=== PATIENT | female | born 1950 | race Caucasian/White ===

== ENCOUNTER → 2016-12-23 | Outpatient (CLI) | payer OTHER | LOC: CIMAGING 09:47 | PROVIDERS: ATTEND Internal Medicine | DX: Z12.31 Encounter for screening mammogram for malignant neoplasm of breast (principal) | CPT/HCPCS: G0202 ==

== ENCOUNTER → 2017-06-14 | Outpatient (CLI) | payer OTHER | LOC: FIMAGING 14:10 | PROVIDERS: ATTEND Internal Medicine | DX: N64.4 Mastodynia (principal) ==

== ENCOUNTER → 2017-07-31 | Outpatient (CLI) | payer OTHER | LOC: FIMAGING 10:16 | PROVIDERS: ATTEND Internal Medicine | DX: Z13.820 Encounter for screening for osteoporosis (principal); M81.0 Age-related osteoporosis without current pathological fracture; Z78.0 Asymptomatic menopausal state; Z85.3 Personal history of malignant neoplasm of breast ==

== ENCOUNTER → 2017-08-16 | Outpatient (CLI) | payer OTHER | LOC: CIMAGING 10:57 | DX: M54.2 Cervicalgia (principal); M79.641 Pain in right hand | CPT/HCPCS: 72040-PO; 73140-PO ==

== ENCOUNTER 2018-02-22 09:09 | Inpatient (IN) | payer OTHER ==
[2018-02-22] MEDS ORDERED: ceFAZolin 2 GM/DEXTROSE 100 ML IV ONE (09:35)
[2018-02-22] MEDS ORDERED: GABAPENTIN 300 MG CAP PO ONE (09:35)
[2018-02-22] MEDS ORDERED: ACETAMINOPHEN 500 MG TAB PO ONE (09:35)
[2018-02-22] MEDS ORDERED: LIDOCAINE 1% 2 ML INJ ID PRN (09:37)
[2018-02-22] MEDS ORDERED: LR 1,000 ML IV ONE (09:37)
[2018-02-22] MEDS ORDERED: ONDANSETRON 4 MG/2 ML VIAL ONE (10:45)
[2018-02-22] MEDS ORDERED: PHENYLEPHRINE 10 MG/ML SDV ONE (10:45)
[2018-02-22] MEDS ORDERED: ROCURONIUM 50 MG/5 ML VIAL ONE (10:45)
[2018-02-22] MEDS ORDERED: DEXAMETHASONE 4 MG/ML VIAL ONE (10:45)
[2018-02-22] MEDS ORDERED: LIDOCAINE 2% 5 ML SDV ONE (10:45)
[2018-02-22] MEDS ORDERED: REMIFENTANIL HCL 1 MG VIAL ONE ×5 (10:46→15:32)
[2018-02-22] MEDS ORDERED: PROPOFOL/EMULSION 500 MG/50 ML BOTTLE IV ONE ×4 (10:46→14:24)
[2018-02-22] MEDS ORDERED: THROMBIN (BOVINE) 5,000 UNIT VIAL TP ONE (10:52)
[2018-02-22] MEDS ORDERED: CHLORHEXIDINE GLUC HIBICLENS 118 ML BTL TP ONE (10:52)
[2018-02-22] MEDS ORDERED: BUPIVACAINE/EPI 0.25% 30 ML SDV ONE (10:52)
[2018-02-22] MEDS ORDERED: BACITRACIN 50,000 UNITS/10 ML SYR IRR ONE (10:52)
[2018-02-22] MEDS ORDERED: PROPOFOL 200 MG/20 ML VIAL ONE (10:55)
--- NOTE | 2018-02-22 11:02 | PDHPUP ---
History & Physical Update H&P update statement: This history and physical update is based on an assessment of the patient which was completed after admission or registration (within 24 hours), but prior to the surgery/procedure. H&P update: H&P reviewed & patient examined, no change in patient's condition since H&P completed
--- NOTE | 2018-02-22 11:38 | PDANEPAE ---
ANE History of Present Illness Cervical neuropathies, here for farooq VILLARREAL JOE Past Medical History - Cardiovascular History Hx Hypertension: Yes Hx Arrhythmias: No Hx Chest Pain: No Hx Coronary Artery / Peripheral Vascular Disease: No Hx CHF / Valvular Disease: No Hx Palpitations: No Cardiovascular History Comment: HYPERL. AMLODIPINE FOR ANGINA ATTACKS - NONE RECENT - Pulmonary History Hx COPD: No Hx Asthma/Reactive Airway Disease: No Hx Recent Upper Respiratory Infection: No Hx Oxygen in Use at Home: No Hx Sleep Apnea: No Sleep Apnea Screening Result - Last Documented: Negative - Neurologic History Hx Cerebrovascular Accident: No Hx Seizures: No Hx Dementia: No Neurologic History Comment: HORMONAL H/As WHEN YOUNGER - Endocrine History Hx Diabetes: No - Renal History Hx Renal Disorders: No - Liver History Hx Hepatic Disorders: No Hepatic History Comment: PANCREATITIS X3 - FIRST EPISODE PRIOR TO HALIMA THEN X2 SINCE - Neurological & Psychiatric Hx Hx Neurological and Psychiatric Disorders: No Neurological / Psychiatric History Comment: ANXIETY/DEPRESSION - Cancer History Hx Cancer: Yes Cancer History Comment: BREAST CA - Congenital Disorder History Hx Congenital Disorders: No - GI History Hx Gastrointestinal Disorders: No Gastrointestinal History Comment: COLECTOMY - Other Health History Other Health History: NEG - Chronic Pain History Chronic Pain: Yes (NECK, BACK & LEG PAIN) - Surgical History Prior Surgeries: 2004 PARTIAL MASTECTOMY L. ASCENDING COLECTOMY X2. RETROPERITONEAL ABSCESS. CHOLECYSTECTOMY. BREAST REDUCTION 2005. KIDNEY CYST ANE Review of Systems Review of Systems: - Exercise capacity METS (RN): 4 METS ANE Patient History - Allergies Allergies/Adverse Reactions: hydromorphone [Hydromorphone] Allergy (Severe, Verified 02/22/18 09:44) Other-Enter Comments iodine [Iodine] Allergy (Severe, Verified 02/22/18 09:44) Anaphylaxis adhesive tape [Adhesive Tape] Allergy (Intermediate, Verified 02/22/18 10:16) Other-Enter Comments - Home Medications Home Medications: Aspirin [Aspirin 325 mg (*)] 325 mg PO DAILY 12/15/11 [Last Taken 02/15/18] Calcium Carb W/Vit D [Calcium Carb W/Vit D 500/200 (*)] 500 mg PO BID 12/15/11 [ Last Taken 02/15/18] Fexofenadine HCl [Kaya Allergy] 180 mg PO DAILY PRN 12/15/11 [Last Taken ] Fish Oil/Dha/Epa [Fish Oil 1,200 mg Fish Oil] 2 each PO BID 12/15/11 [Last Taken 02/15/18] Fluoxetine HCl [Prozac 40 mg] 40 mg PO DAILY 12/15/11 [Last Taken 02/22/18 08:00 ] Multivitamins [Multivitamin (*)] 1 each PO DAILY 12/15/11 [Last Taken 02/15/18] Niacin [Niacin 500 mg (*)] 1,500 mg PO HS 12/15/11 [Last Taken 02/15/18] Potassium 550 Mg 1 tab PO DAILY 12/15/11 [Last Taken 02/22/18 08:00] Simvastatin 20 mg PO DAILY 12/15/11 [Last Taken 02/21/18 21:00] Triamterene/Hctz 75/50 [Maxzide 75-50 mg Tab (*)] 1 each PO DAILY 12/15/11 [ Last Taken 02/21/18 09:00] Amlodipine Besylate 02/08/18 [Last Taken 02/22/18 08:00] - NPO status NPO Since - Liquids (Date): 02/21/18 NPO Since - Liquids (Time): 18:30 NPO Since - Solids (Date): 02/21/18 NPO Since - Solids (Time): 18:30 - Smoking Hx Smoking Status: Never smoked - Family Anes Hx Family Hx Anesthesia Complications: NEG ANE Labs/Vital Signs - Labs Result Diagrams: 02/22/18 09:55 - Vital Signs Blood Pressure: 135/92 Heart Rate: 75 Respiratory Rate: 16 O2 Sat (%): 93 Height: 157.48 cm Weight: 58.967 kg ANE Physical Exam - Airway Neck exam: decreased ROM Mallampati Score: Class 2 Mouth exam: normal dental/mouth exam - Pulmonary Pulmonary: no respiratory distress - Cardiovascular Cardiovascular: regular rate and rhythym - ASA Status ASA Status: III ANE Anesthesia Plan Anesthesia Plan: general endotracheal anesthesia (Glidescope, blood if needed, TIVA with SSEPs) Total IV Anesthesia: Yes
[2018-02-22] MEDS ORDERED: THROMBIN (BOVINE) 20,000 UNIT VIAL TP ONE (11:47)
[2018-02-22] MEDS ORDERED: MIDAZOLAM 2 MG/2 ML VIAL ONE (12:03)
[2018-02-22] MEDS ORDERED: diphenhydrAMINE 25 MG CAP PO PRN (12:29)
[2018-02-22] MEDS ORDERED: POLYETHYLENE GLYCOL 3350 17 GM PKT PO PRN (12:29)
[2018-02-22] MEDS ORDERED: BISACODYL 10 MG SUPP PR PRN (12:29)
[2018-02-22] MEDS ORDERED: LACTULOSE 20 GM/30 ML UDCUP PO PRN (12:29)
[2018-02-22] MEDS ORDERED: ONDANSETRON 4 MG/2 ML VIAL IVP PRN ×2 (12:29→16:20)
[2018-02-22] MEDS ORDERED: MAGNESIUM HYDROXIDE 30 ML UDCUP PO PRN (12:29)
[2018-02-22] MEDS ORDERED: ONDANSETRON DISINTEGRATING 4 MG TAB PO PRN (12:29)
[2018-02-22] MEDS ORDERED: NS 1,000 ML IV SCH (12:30)
[2018-02-22] MEDS ORDERED: ACETAMINOPHEN 500 MG TAB PO SCH (14:00)
[2018-02-22] MEDS ORDERED: fentaNYL 100 MCG/2 ML INJ ONE ×2 (15:43→17:07)
--- NOTE | 2018-02-22 15:54 | PDMN ---
Medical Necessity Medical necessity: [facility] S320 cervical fusion A-1 days INPT for 3 or more levels OP: C4/5,5/6,6/7 cervical fusion anterior -AUTH # [id number] DONE IN PT.
[2018-02-22] MEDS ORDERED: fentaNYL 100 MCG/2 ML INJ IVP PRN (16:20)
[2018-02-22] MEDS ORDERED: NALOXONE HCL 0.4 MG/ML INJ IVP PRN (16:20)
--- NOTE | 2018-02-22 16:21 | POSTOPPROG ---
Post Op Note Date of Operation: 02/22/18 Surgeon: Jeffery Mcdermott Full Stack Java Developer: Chanda Marie NP Anesthesia: GET(General Endotracheal) Pre-op Diagnosis: Cervical stenosis Procedure: ACDF C4-5, C5-6, C6-7 Inf/Abcess present in the surg proc area at time of surgery?: No Depth: Deep Incisional (Fascial) EBL: 50-100 Total fluids administered: see anesthesia Complications: none Date of Surgery: 02/22/18 Post Op Day: 0 Assessment/Plan: Assessment: 67 yr old F s/p ACDF C4-5, C5-6, C6-7 for left neck and arm pain Plan: -Admit med surg -Pain management -PT/OT/ST -Post op xrays in am -Hard collar on at all times -Please provide with meseret collar for shower Please call neurosurgery with any questions/concerns Subjective: waking up in pacu Objective: waking up in pacu No facial droop WOODALL x4 5/5 BUE BLE Hard collar in place Dressing CDI Appropriate Neuro Check Frequency Ordered: Yes
--- NOTE | 2018-02-22 17:10 | POSTANESTH ---
Post Anesthetic Evaluation Cardiovascular Status: Similar to Pre-Op Cond Respiratory Status: Normal, Stable Level of Consciousness/Mental Status: Can Participate in Eval Pain Control: Adequate, Prn Tx Ordered Nausea/Vomiting Control: Adequate, Prn Tx Ordered Complications Possibly Related to Anesthesia: None Noted
[2018-02-22] MEDS: oxyCODONE IR 5 MG TAB PO PRN ×2 (18:17→22:20)
[2018-02-22] MEDS: ACETAMINOPHEN 500 MG TAB PO SCH (20:29)
[2018-02-22] MEDS: METHOCARBAMOL 750 MG TAB PO PRN (20:30)
[2018-02-22] MEDS: ceFAZolin 2 GM/DEXTROSE 100 ML IV SCH (22:19)
[2018-02-22] MEDS: SENNOSIDES/DOCUSATE SODIUM TAB PO SCH (22:20)
[2018-02-22] MEDS: FAMOTIDINE 20 MG TAB PO SCH (22:20)
--- NOTE | 2018-02-23 00:04 | GOP ---
DATE OF OPERATION: 02/22/2018 SURGEON: Scotty Mcdermott MD PROCUREMENT ANALYST: Sheree Marie NP. PREOPERATIVE DIAGNOSIS: Cervical spondylosis with left cervical radiculopathy. POSTOPERATIVE DIAGNOSIS: Cervical spondylosis with left cervical radiculopathy. PROCEDURE PERFORMED: Anterior cervical diskectomy with arthrodesis and decompression at each level C 4-5, C5-6, C6-7 (52853, 18107 x2); placement of structural biomechanical bone allograft at C4-5, C5-6 , C6-7; same incision bone graft harvest, microscope, anterior cervical instrumentation C4, C5, C6, C 7 ([id number]). FINDINGS: ESTIMATED BLOOD LOSS: 100 cc. INDICATIONS: The patient is a 67-year-old with terrible pain radiating down the left arm that was un responsive to conservative management. She decided to have surgery. Preoperatively, she had hypokal emia and the case was nearly canceled but we rechecked the potassium on the day of surgery and it had gone up to a 3.5 level, and we proceeded. She understood the risks of the surgery including the ris k of esophageal injury, carotid injury, recurrent laryngeal nerve injury, continued symptoms, pseudoa rthrosis, and the possible need for future spine surgery. She knew there was risk of hardware compli cations including malfunction of the hardware, malposition of the hardware, fracture of the hardware. She also knew that she may continue to have postoperative symptoms and sometimes surgery fails to a lleviate the pain. She knew there was risk of dysphagia, hoarseness, nerve injury, and major vascula r injury. She wanted to proceed despite these risks. DESCRIPTION OF PROCEDURE: The patient was taken to the operating room, placed in a supine position. General anesthesia was begun. A midline shoulder roll was placed. Her arms were tucked at her side . Her neck was sterilely prepped and draped in the usual fashion. We made a transverse incision on the right side of the neck. The subcutaneous tissue was dissected using Bovie cautery down through p latysma. We used a combination of sharp and blunt dissection to work our way medial to the sternocle idomastoid and lateral to the strap muscles down the prevertebral space. A localizing x-ray was take n. We dissected the longus colli muscles off the spine at C4, C5, C6 and C7. Self-retaining retract or was placed. We removed the ventral osteophytes at each of those levels. We placed distraction pi ns at C4-5, distracted there and removed the disk and the cartilaginous endplates. We drilled and lyons rvested subchondral bone for autologous grafting purposes and then we chose a 6 x 14 x 11 mm Cornerst one intervertebral device made out of allograft bone. We used a drill to widen the aperture in the m iddle of the bone. We did this at each level and packed it with bone autograft. We opened the poste rior longitudinal ligament and decompressed the thecal sac and as we were decompressing, there was so me adherence of the PLL strangely to the dura on the patient's right-hand side at the C4-5 level. As we were removing this, we removed a small portion of dura. The arachnoid was intact. There was no leakage of any CSF whatsoever. I placed a small piece of Gelfoam there and then placed our intervert ebral device with bone autograft in it at the C4-5 level. Moved our distraction pins and did likewis e at C5-6, C6-7. We did not encounter any difficulty at the other levels, opening the PLL was straig htforward and there was a clear plane between the PLL and the dura at all the other levels. We got g reat decompressions at C5-6 and C6-7. We drilled and harvested subchondral bone at each level and pa cked it inside the same size bone allograft. A nice fit was obtained. We did that at C5-6 and did l ikewise at C6-7. There was left-sided foraminal stenosis at each level. It was worse on the left at each level than on the right, but we did do bilateral decompressions. We removed all of our distrac tion pins after completing the diskectomy, decompression, and arthrodesis at each level, and then we chose a 53 mm plate. We increased the lordosis on the plate, placed a single screw at C4, a single s crew at C7. We shot an x-ray. We were happy with the position of the plate and screws. We then put the remaining screws in place and locked them according to company specification. The final x-ray w as taken and everything was in great position. We achieved meticulous hemostasis and then placed a l ittle 0.25% Marcaine with epinephrine in the wound. We then closed the incision in multiple layers u sing Vicryl sutures and Steri-Strips were applied to the skin. The patient was reversed from anesthe eva, extubated, and transferred to recovery room in stable condition. There were no complications. COMPLICATIONS: Unintended durotomy at C4-5 without spinal fluid leak. INSTRUMENTATION USED: Medtronic Zevo plate, 53 mm plate. We used 6 x 14 x 11 mm Cornerstone interve rtebral devices at each level. /[id number]/MODL
[2018-02-23] MEDS: oxyCODONE IR 5 MG TAB PO PRN ×5 (03:03→20:32)
[2018-02-23 05:26] LABS: PLATELET COUNT 246 10^3/uL (150-400)
[2018-02-23] MEDS: ACETAMINOPHEN 500 MG TAB PO SCH ×3 (06:11→20:33)
[2018-02-23] MEDS: ceFAZolin 2 GM/DEXTROSE 100 ML IV SCH (06:11)
[2018-02-23] MEDS: METHOCARBAMOL 750 MG TAB PO PRN ×2 (06:14→14:57)
[2018-02-23] MEDS: SENNOSIDES/DOCUSATE SODIUM TAB PO SCH ×2 (07:48→20:32)
[2018-02-23] MEDS: FLUoxetine 20 MG CAP PO SCH (07:48)
[2018-02-23] MEDS: ATORVASTATIN CALCIUM 10 MG TAB PO SCH (07:48)
[2018-02-23] MEDS: FAMOTIDINE 20 MG TAB PO SCH ×2 (07:54→20:31)
--- NOTE | 2018-02-23 09:30 | NEUSURGPN ---
Assessment/Plan: Assessment: 67 yr old F s/p ACDF C4-5, C5-6, C6-7 for left neck and arm pain POD1 Plan: -Advance diet as tolerated. -Pain management -PT/OT/ST -Post op xrays pending -Hard collar on at all times -Please provide with meseret collar for shower Please call neurosurgery with any questions/concerns Subjective: Mild dysphagia, denies any new arm pain Objective: NAD A&Ox3 MAEx4 5/5 and equal in BUE and BLE. Incision c/d/i. - Physician Patient Seen by : [facility] Physical Exam - Vitals, I&O, Labs I and O 02/22/18 02/23/18 02/24/18 05:59 05:59 05:59 Intake Total 2550 Output Total 1870 Balance 680 Weight 58.967 kg Intake: Oral (ml) 950 IV Intake (ml) 1600 Output: Urine (ml) 1850 Catheter 1850 Estimated Blood Loss (ml) 20 Other: Intake Quantity Yes Sufficient Vital Signs Temp Pulse Resp BP Pulse Ox 36.8 C 72 16 114/63 93 02/23/18 07:58 02/23/18 07:58 02/23/18 07:58 02/23/18 07:58 02/23/18 07:58 Laboratory Results 02/23/18 04:40 02/23/18 04:40 ICD10 Worksheet Patient Problems: Problems Problem Status Onset Cervical stenosis of spinal canal Acute - ICD10 Problem Qualifiers (1) Cervical stenosis of spinal canal
[2018-02-23] MEDS: amLODIPine BESYLATE 5 MG TAB PO SCH (11:21)
[2018-02-23] MEDS: TRIAMTERENE/HCTZ 75/50 1 EACH TAB PO SCH (12:39)
[2018-02-23] MEDS: POTASSIUM 550 MG PO SCH (12:39)
--- NOTE | 2018-02-23 14:23 | ASMTCMCOM ---
CM Note CM Note Notes: Pt had planned spinal surgery. Pt resides with spouse who works in [place] and is often not home but will be home until approx 03/19/17. 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 Spoke with pt and spouse about HHC PT, pt undecided and wants to think about if she wants HC. No referrals sent yet. CM to follow. D/c plan of care: independent or HHC PT depending on what pt decides. Date Signed: 02/23/2018 02:22 PM Electronically Signed By:WOOD Camacho
[2018-02-24] MEDS: ACETAMINOPHEN 500 MG TAB PO SCH (05:17)
[2018-02-24] MEDS: FAMOTIDINE 20 MG TAB PO SCH (08:51)
[2018-02-24] MEDS: METHOCARBAMOL 750 MG TAB PO PRN (08:51)
[2018-02-24] MEDS: SENNOSIDES/DOCUSATE SODIUM TAB PO SCH (08:51)
[2018-02-24] MEDS: FLUoxetine 20 MG CAP PO SCH (08:52)
[2018-02-24] MEDS: TRIAMTERENE/HCTZ 75/50 1 EACH TAB PO SCH (08:52)
[2018-02-24] MEDS: amLODIPine BESYLATE 5 MG TAB PO SCH (08:54)
[2018-02-24] MEDS: oxyCODONE IR 5 MG TAB PO PRN (08:54)
[2018-02-24] MEDS: ATORVASTATIN CALCIUM 10 MG TAB PO SCH (08:55)
[2018-02-24 08:57] VITALS: BP 127/74
--- NOTE | 2018-02-24 09:21 | NEUSURGPN ---
Assessment/Plan: 67 yr old F s/p ACDF C4-5, C5-6, C6-7 for left neck and arm pain POD2 Plan: -Pain management -PT/OT/ST if needed -Post op xrays look great -Hard collar on at all times -Please provide with meseret collar for shower -home later today Please call neurosurgery with any questions/concerns Subjective: doing well, arms feel great Objective: NAD in ccollar EOMI, PEARLA cnii-xii intact MAEx4, 5/5= SILT incision dressed, dry and clean - Physician Discussed Patient with : [facility] Physical Exam - Vitals, I&O, Labs I and O 02/23/18 02/24/18 02/25/18 05:59 05:59 05:59 Intake Total 2550 750 325 Output Total 1870 2300 Balance 680 -1550 325 Weight 58.967 kg Intake: Oral (ml) 950 750 325 IV Intake (ml) 1600 Output: Urine (ml) 1850 2300 Catheter 1850 Toilet 2300 Estimated Blood Loss (ml) 20 Other: Intake Quantity Yes Yes Yes Sufficient Number of Voids Toilet 2 Vital Signs Temp Pulse Resp BP Pulse Ox 36.8 C 72 14 127/74 H 97 02/24/18 07:31 02/24/18 07:31 02/24/18 07:31 02/24/18 08:54 02/24/18 07:31 Laboratory Results 02/23/18 04:40 02/23/18 04:40 ICD10 Worksheet Patient Problems: Problems Problem Status Onset Cervical stenosis of spinal canal Acute
--- NOTE | 2018-02-24 10:16 | ASDISCHSUM ---
Discharge Information Plan Status:Home with No Needs Medically Cleared to Leave:02/23/2018 Discharge Date:02/23/2018 CM D/C Disposition:Home, Routine, Self-Care ADT D/C Disposition:Home, Routine, Self-Care Projected Discharge Date:02/23/2018 Transportation at D/C:Family Discharge Delay Reason: Follow-Up Date:02/23/2018 Discharge Slot: Final Diagnosis:cervical stenosis, radiculopathy Placement Information Patient Contact Information Contact Name:IGOR Relationship: Address:[address] [place] Phone: [facility]/Zip Code:[place] [address] Email: Financial Information Financial Class:HMO and PPO Plans Primary Plan Desc:NISSA BOUDREAUX PPO POS Primary Plan Number:[id number] Secondary Plan Desc:MEDICARE OUTPATIENT Secondary Plan Number:[id number] Assessment Information LACE LACE Length of stay for Answers: Less than 1 day current admission Acuity / Level of Answers: Yes Care: Did the patient have an inpatient admission? Comorbidities - select Answers: Other Notes: cervical all that apply stenosis, radiculopathy # of Emergency department Answers: 0 visits in the last 6 months Score: 4 Date Signed: 02/24/2018 10:15 AM Electronically Signed By:Tiffanie Mathews [facility] CM Progress Note CM Note CM Note Notes: Pt had planned spinal surgery. Pt resides with spouse who works in [place] and is often not home but will be home until approx 03/19/17. OT/MEDICAL TECHNOLOGIST CLINICAL rec home, PT rec HHC. Spoke with pt and spouse about HHC PT, pt undecided and wants to think about if she wants HC. No referrals sent yet. CM to follow. D/c plan of care: independent or HHC PT depending on what pt decides. Date Signed: 02/23/2018 02:22 PM Electronically Signed By:WOOD Camacho Case Management Discharge Plan Note Case Management Discharge Discharge Order Complete? Answers: Yes Patient to Obtain Answers: via Family Medications Transportation Arranged Answers: Family/Friends Transport will Pick (Date 02/24/2018 12:00 AM & Time) Family Notified Answers: Yes Notes: by pt Discharge Comments Notes: Spoke with pt in the room. Pt feels she is comfortable going home independently and is declining home health care at this time. Pt lives with and daughter will also be in the house. No CM needs noted at this time. Date Signed: 02/24/2018 10:14 AM Electronically Signed By:Tiffanie Mathews Intervention Information
[2018-02-24] MEDS: POTASSIUM 550 MG PO SCH (10:21)
[2018-02-25] MEDS ORDERED: ENOXAPARIN 40 MG/0.4 ML SYR SC SCH (09:00)
--- NOTE | 2018-02-26 16:43 | GDS ---
PRIMARY DIAGNOSIS: Cervical stenosis. OPERATIONS/PROCEDURES: February 22, 2018, patient underwent anterior cervical diskectomy and fusion at C4-5, C5-6 and C6-[address] Mcdermott. HOSPITAL COURSE: The patient presented to [facility] on February 22, 2018, for an anterior cervical diskectomy and fusion of C4-5, C5-6 , and C6-7. Procedure was performed by Dr. Mcdermott for which there were no known complications, please see Dr. Mcdermott's operative note for further details. After the operation, the patient was in stable condition, and she was transferred from the OR to the PACU, and then to the surgical floor. While on the floor, the patient received physical therapy, occupational therapy and speech therapy, as well as [ain management. The catheter was removed. The patient was in stable condition and subsequently discharged home on January. The patient will follow up in office with Dr. Mcdermott in 2 weeks. She has been instructed to contact our office with any questions or concerns at . CONSULTS: None. COMPLICATIONS: None. DISCHARGE CONDITION: Stable. DISCHARGE MEDICATIONS: See discharge medication reconciliation for details. DISCHARGE INSTRUCTIONS: The patient to avoid any bending or twisting at the neck. Patient to avoid lifting greater than 10 pounds. Patient has been instructed to wear her cervical collar at all times. Okay for the patient to remove the outer dressing on postoperative day 3, leaving the Steri-Strips in place. It is okay for the patient to shower on postoperative day 3. She will avoid submersion of the incision for the next 2 to 3 weeks. Patient to avoid any NSAID for the next 4 to 6 months. She will follow up in our office is scheduled in 2 weeks for postoperative visit, and she has been instructed to call sooner with any questions or concerns. /[id number]/MODL MTDD
== END 2018-02-24 12:11 | disposition home or self-care (01) | DRG 472 ==
LOC: F3E 09:09 → F3N 17:39
PROVIDERS: ADMIT Neurological Surgery; ATTEND Neurological Surgery
DX: M47.22 Other spondylosis with radiculopathy, cervical region (principal); G97.41 Accidental puncture or laceration of dura during a procedure; M48.02 Spinal stenosis, cervical region; M50.320 Other cervical disc degeneration, mid-cervical region, unspecified level; I10 Essential (primary) hypertension; Z85.3 Personal history of malignant neoplasm of breast
CPT/HCPCS: 92610-GN; 97116-GP; 97161-GP; 97165-GO; 97535-GO; C1713; G8978-GP-CI; G8979-GP-CI; G8980-GP-CI; G8987-GO-CJ; G8988-GO-CI; G8996-GN-CI; G8997-GN-CI; J0690; J1100; J2250; J2370; J2405; J2704; J3010

== ENCOUNTER → 2018-04-23 | Outpatient (CLI) | payer OTHER | LOC: CIMAGING 16:04 | PROVIDERS: ATTEND Neurological Surgery | DX: Z98.1 Arthrodesis status (principal) | CPT/HCPCS: 72040-PO ==

== ENCOUNTER → 2018-08-17 | Outpatient (CLI) | payer OTHER | LOC: CIMAGING 10:25 ==